=== PATIENT | female | born 1995 ===

== ENCOUNTER 2019-08-02 09:02 | Emergency (ER) | payer OTHER ==
[2019-08-02 09:13] VITALS: BP 117/61
--- NOTE | 2019-08-02 09:32 | ED ---
Nausea/Vomiting/Diarrhea HPI - HPI Summary HPI Summary: 24-year-old female presents to urgent care for complaints of nausea and vomiting. Patient states that she consumed 3 alcoholic beverages last night and developed severe nausea with 2 episodes of vomiting during the night. States this morning the severe nausea has persisted. Reports feels a little lightheaded. Last menstrual period 07/26/2019. States she is not sexually active. Denies fever, chills, abdominal pain, back or flank pain, diarrhea, dysuria, frequency, urgency, or hematuria. - History of Current Complaint Chief Complaint: UCGI Stated Complaint: VOMITING Time Seen by Provider: 08/02/19 09:15 Hx Obtained From: Patient Hx Last Menstrual Period: 07/26/19 Pain Intensity: 0 - Allergies/Home Medications Allergies/Adverse Reactions: Allergies Allergy/AdvReac Type Severity Reaction Status Date / Time sulfamethoxazole Allergy Dizziness Verified 06/22/19 11:46 [From Bactrim] trimethoprim [From Bactrim] Allergy Dizziness Verified 06/22/19 11:46 flu shot Allergy See Comment Uncoded 06/22/19 11:46 PMH/Surg Hx/FS Hx/Imm Hx Previously Healthy: Yes Endocrine/Hematology History: Denies: Hx Diabetes, Hx Thyroid Disease Cardiovascular History: Denies: Hx Hypertension Respiratory History: Denies: Hx Asthma, Hx Chronic Obstructive Pulmonary Disease (COPD) GI History: Denies: Hx Ulcer Psychiatric History: Reports: Hx Anxiety, Hx Depression - Surgical History Surgical History: Yes Surgery Procedure, Year, and Place: T&A Hx Anesthesia Reactions: No Infectious Disease History: No Infectious Disease History: Denies: Hx Hepatitis, Hx Human Immunodeficiency Virus (HIV), Traveled Outside the [place] in Last 30 Days - Family History Known Family History: Positive: Non-Contributory - Social History Occupation: Student Lives: Dormitory/Roommates Alcohol Use: Occasionally Substance Use Type: Reports: None Smoking Status (MU): Never Smoked Tobacco Review of Systems Negative: Fever, Chills Negative: Sore Throat Negative: Palpitations, Chest Pain Negative: Shortness Of Breath, Cough Positive: Vomiting, Nausea. Negative: Abdominal Pain, Diarrhea Negative: dysuria, frequency, flank pain, hematuria, urgency Musculoskeletal: Negative Skin: Negative Negative: Headache All Other Systems Reviewed And Are Negative: No Physical Exam - Summary Physical Exam Summary: GENERAL APPEARANCE: Well developed, well nourished, alert and cooperative, and appears to be in no acute distress. EYES: Conjunctiva clear. No drainage. EARS: External auditory canals and tympanic membranes clear, hearing grossly intact. NOSE: No nasal discharge. THROAT: Pharynx normal. No tonsilar inflammation, swelling, exudate, or lesions. Uvula midline. NECK: Neck supple, non-tender without lymphadenopathy. CARDIAC: Normal S1 and S2. No S3, S4 or murmurs. Rhythm is regular. There is no peripheral edema, cyanosis or pallor. Extremities are warm and well perfused. Capillary refill is less than 2 seconds. Peripheral pulses intact. LUNGS: Clear to auscultation without rales, rhonchi, wheezing or diminished breath sounds. ABDOMEN: Positive bowel sounds. Soft, nondistended, nontender. No guarding or rebound. No masses or hepatosplenomegally. No CVA tenderness. MUSKULOSKELETAL: ROM intact to all extremities. No joint erythema or tenderness. Normal muscular development. Normal gait. SKIN: Skin normal color, texture and turgor with no lesions or eruptions. Triage Information Reviewed: Yes Vital Signs On Initial Exam: Initial Vitals Temp Pulse Resp BP Pulse Ox 99.0 F 110 19 117/61 98 08/02/19 09:09 08/02/19 09:09 08/02/19 09:09 08/02/19 09:09 08/02/19 09:09 Vital Signs Reviewed: Yes Diagnostics - Vital Signs Vital Signs Temp Pulse Resp BP Pulse Ox 08/02/19 09:09 99.0 F 110 19 117/61 98 - Laboratory Lab Statement: Any lab studies that have been ordered have been reviewed, and results considered in the medical decision making process. Re-Evaluation - Re-Evaluation First Eval Re-Evaluation Time: 10:04 Change: Improved Comment: States nausea improved with ondansetron. Taking PO fluids well. Will plan to d/c home for oral rehydration. Naus/Vom/Diarrhea Course/Dx - Course Course Of Treatment: 24-year-old female presents to urgent care for complaints of nausea and vomiting. Patient states that she consumed 3 alcoholic beverages last night and developed severe nausea with 2 episodes of vomiting during the night. States this morning the severe nausea has persisted. Reports feels a little lightheaded. Last menstrual period 07/26/2019. States she is not sexually active. Denies fever, chills, abdominal pain, back or flank pain, diarrhea, dysuria, frequency, urgency, or hematuria. Afebrile. Mildly tachycardic otherwise vital signs stable. Patient is exam was overall unremarkable. Urine was negative. Patient was given ondansetron 8 mg PO with improvement in her symptoms. She was able to tolerate fluids prior to discharge. She was given a prescription for ondansetron 4 mg every 8 hours as needed for any nausea or vomiting and encourage oral rehydration at home. She is to follow-up with her primary care provider if symptoms are not improving. Anticipatory guidance and warning symptoms were reviewed with the patient. Verbalizes understanding and agrees with plan of care. - Differential Dx/Diagnosis Differential Diagnoses - Female: , Gastroenteritis (Viral), Gastroenteritis (Bacterial), Vomiting, Gastritis, Dehydration Provider Diagnosis: Nausea Condition At Discharge: Stable Discharge ED - Sign-Out/Discharge Documenting (check all that apply): Patient Departure All imaging exams completed and their final reports reviewed: No Studies - Discharge Plan Condition: Stable Disposition: HOME Prescriptions: Ondansetron [Ondansetron Odt] 4 mg PO Q8HR #3 tab.rapdis Patient Education Materials: Acute Nausea and Vomiting (ED) Referrals: No Primary Care Phys,NOPCP [Primary Care Provider] - Additional Instructions: Use ondansetron 4 mg 1 tab every 8 hours as needed for nausea or vomiting. You were given a dose in the clinic at 9:45 am. Drink plenty of fluids. Try to drink small amounts frequently to avoid filling your stomach to full which can cause vomiting. If you are still having vomiting, start with a clear liquid diet including soup broths, Jello, popsicles, and moshe-filomena with carbonation stirred out of it. You may then advance to a bland diet including saltine crackers, toast, bananas , rice, and applesauce. Then return to a normal diet as tolerated. Follow up here or with your primary care provider in 3-5 days if symptoms persist. Seek immediate medical attention in the emergency room if you develop fever greater than 100.5 F, have severe abdominal pain, persistent vomiting, blood in your vomit or stool, or any worsening of symptoms. - Billing Disposition and Condition Condition: STABLE Disposition: Home
[2019-08-02] MEDS ORDERED: Ondansetron ODT TAB* 4 MG PO ONE (09:38)
== END 2019-08-02 10:18 | disposition home or self-care (01) ==
LOC: UCEAST 09:02
DX: R11.2 Nausea with vomiting, unspecified (principal); R42 Dizziness and giddiness; Z88.2 Allergy status to sulfonamides; Z88.7 Allergy status to serum and vaccine
CPT/HCPCS: 84702; 99212; A9270-GY; G0463